=== PATIENT | male | born 1965 ===

== ENCOUNTER 2016-12-20 07:57 | Emergency (ER) | payer BC ==
[2016-12-20] MEDS ORDERED: Eye Irrigation Solution 30 ML BOTTLE BOTH EYES ONE (08:49)
[2016-12-20] MEDS ORDERED: Tetracaine 0.5% OPTH.SOL 4 ML* 1 DROP BTL BOTH EYES ONE (08:49)
[2016-12-20] MEDS ORDERED: Fluorescein Sodium TOPICAL* 1 MG TEST OPHTHALMIC ONE (08:49)
--- NOTE | 2016-12-20 09:40 | UC ---
Eye Complaint HPI - HPI Summary HPI Summary: BILATERAL EYE REDNESS, LIGHT SENSITIVITY, PAIN. YESTERDAY AFTERNOON WAS WELDING AND HAD SEVERAL TIMES WHEN HE WAS NOT USING PERSONAL PROTECTIVE EQUIPMENT. YESTERDAY HAD BILATERAL PAIN ESPECIALLY AT NIGHT. NO DISCHARGE. - History of Current Complaint Hx Obtained From: Patient Onset/Duration: Gradual Onset, Lasting Hours, Still Present Timing: Hours Severity Initially: Mild Severity Currently: Moderate Location of Injury: Conjunctiva, Other - CORNEA Character: Dull Aggravating Factor(s): Ultraviolet Exposure - WELDING FLASH Alleviating Factor(s): Nothing Associated Signs And Symptoms: Positive: Photophobia, Drainage (Clear). Negative: Vision Impairment Right, Vision Impairment Left - Risk Factors Penetrating Injury Risk Factor: Negative Acute Glaucoma Risk Factors: Eye Inflammation Optic Artery Occlusion Risk Factors: Negative <Liam Merritt - Last Filed: 12/20/16 09:35> <Kelsy Liu - Last Filed: 12/20/16 09:42> - History of Current Complaint Chief Complaint: UCEye Stated Complaint: EYE COMPLAINT Time Seen by Provider: 12/20/16 08:34 - Allergies/Home Medications Allergies/Adverse Reactions: Allergies Allergy/AdvReac Type Severity Reaction Status Date / Time No Known Allergies Allergy Verified 12/20/16 08:28 Home Medications: Home Medications Naproxen TAB* [Naprosyn 250 mg TAB*] 500 mg 12/20/16 [History] PMH/Surg Hx/FS Hx/Imm Hx Previously Healthy: Yes - Surgical History Surgical History: None - Family History Known Family History: Negative: Diabetes - Social History Occupation: Employed Full-time Lives: With Family Alcohol Use: None Substance Use Type: None Smoking Status (MU): Never Smoked Tobacco <Liam Merritt - Last Filed: 12/20/16 09:35> Review of Systems Constitutional: Negative Skin: Negative Eyes: Drainage, Eye Redness, Photophobia ENT: Negative Respiratory: Negative Cardiovascular: Negative Gastrointestinal: Negative Genitourinary: Negative Motor: Negative Neurovascular: Negative Musculoskeletal: Negative Neurological: Negative Psychological: Negative Is Patient Immunocompromised?: No All Other Systems Reviewed And Are Negative: Yes <Liam Merritt - Last Filed: 12/20/16 09:35> Physical Exam Triage Information Reviewed: Yes Appearance: Well-Appearing, No Pain Distress, Well-Nourished Vital Signs: Initial Vital Signs Temp 98.6 F 12/20/16 08:29 Pulse 77 12/20/16 08:29 Resp 16 12/20/16 08:29 BP 180/110 12/20/16 08:29 Pulse Ox 98 12/20/16 08:29 Eyes: Positive: Conjunctiva Inflamed, Other: - FLUORESCEIN UPTAKE BILATERAL CORNEA; DIFFUSE FLASH CAMACHO BILATERAL EYES. ENT Exam: Normal ENT: Positive: Normal ENT inspection, Hearing grossly normal, TMs normal Dental Exam: Normal Neck exam: Normal Respiratory Exam: Normal Respiratory: Positive: Chest non-tender, Lungs clear, Normal breath sounds, No respiratory distress, No accessory muscle use Cardiovascular Exam: Normal Cardiovascular: Positive: RRR, No Murmur, Pulses Normal Abdominal Exam: Normal Musculoskeletal Exam: Normal Musculoskeletal: Positive: Strength Intact Neurological Exam: Normal Psychological Exam: Normal Skin Exam: Normal <Liam Merritt - Last Filed: 12/20/16 09:35> Vital Signs: Initial Vital Signs Temp 98.6 F 12/20/16 08:29 Pulse 77 12/20/16 08:29 Resp 16 12/20/16 08:29 BP 180/110 12/20/16 08:29 Pulse Ox 98 12/20/16 08:29 <Kelsy Liu - Last Filed: 12/20/16 09:42> Eye Complaint Course/Dx - Differential Dx/Diagnosis Differential Diagnosis/HQI/PQRI: Corneal Abrasion, Detached Retina, Uveitis Provider Diagnoses: BILATERAL CORNEAL FLASH CAMACHO <Liam Merritt - Last Filed: 12/20/16 09:35> Discharge <Liam Merritt - Last Filed: 12/20/16 09:35> <Kelsy Liu - Last Filed: 12/20/16 09:42> - Discharge Plan Condition: Stable Disposition: HOME Prescriptions: Tobramycin 0.3% OPHTH.OINT* [Tobrex 0.3% OPHTH.OINT*] 1 applic BOTH EYES TID #1 tube Patient Education Materials: Corneal Flash Camacho (ED) Forms: *Gen. Provider Communication, *Work Release Referrals: [facility] [place] [facility] [place] [facility] [place]Outside] Jasvir De MD [Medical Doctor] - If Needed Slava Richard MD [Medical Doctor] - If Needed Attestation Statement User Type: Provider - I was available for consult. This patient was seen by the GRETTA. The patient was not presented to, seen by, or examined by me. -Gomez <Kelsy Liu - Last Filed: 12/20/16 09:42>
== END 2016-12-20 09:35 | disposition home or self-care (01) ==
LOC: UCEAST 07:57
DX: T26.12XA Burn of cornea and conjunctival sac, left eye, initial encounter (principal); T26.11XA Burn of cornea and conjunctival sac, right eye, initial encounter; X08.8XXA Exposure to other specified smoke, fire and flames, initial encounter; Y92.9 Unspecified place or not applicable
CPT/HCPCS: 99202; A9270-GY; G0463